=== PATIENT | female | born 2000 | race Caucasian/White ===

== ENCOUNTER 2019-01-23 16:54 | Inpatient (IN) | payer MEDICAID, SELFPAY ==
[2019-01-23] MEDS: Dinoprostone-CERVICAL 10 MG VSUPP VG (18:35)
[2019-01-23 18:37] LABS: HGB 11.6 g/dL (12.0-15.5); Mean Corp. HGB Concentration 32.2 g/dL (32.0-36.0); Mean Corpuscular Hemoglobin 27.7 pg (27.0-33.0); Mean Corpuscular Volume 85.9 fL (80-95); Mean Platelet Volume 12.7 fL (8.0-11.0); Platelet Count 153 x1000/uL (130-400); RBC 4.19 m/cumm (4.00-5.20); RBC Distribution Width 14.6 % (11.7-14.6); White Blood Cell Count 9.05 k/cumm (4.4-10.8)
[2019-01-23] MEDS: Zolpidem 5 MG TAB 10 MG PO (23:30)
[2019-01-24] MEDS: miSOPROStol 25 MCG TAB PO (07:30)
[2019-01-24] MEDS: Lactated Ringers 1,000 ML 125 ML IV ×3 (12:36→22:28)
[2019-01-24] MEDS: FentaNYL/ROPIvacaine 2 mcg/ml and 0.1% 200 ML CADD Cassette EP ×2 (16:54→21:30)
[2019-01-24] MEDS: Ondansetron 4 MG/2 ML VIAL (21:54)
[2019-01-25] MEDS: Ibuprofen 600 MG TAB PO ×3 (04:14→19:47)
[2019-01-25] MEDS: Acetaminophen 325 MG TAB 650 MG PO ×3 (13:48→23:58)
[2019-01-25] MEDS: Measles, Mumps, & Rubella Vaccine 0.5 ML VIAL SC (17:01)
[2019-01-26] MEDS: Ibuprofen 600 MG TAB PO ×3 (01:57→18:19)
[2019-01-26 07:14] LABS: HCT 30.6 % (36.0-46.0); HGB 9.4 g/dL (12.0-15.5); Mean Corp. HGB Concentration 30.7 g/dL (32.0-36.0); Mean Corpuscular Volume 87.9 fL (80-95); Mean Platelet Volume 12.7 fL (8.0-11.0); Platelet Count 159 x1000/uL (130-400); RBC 3.48 m/cumm (4.00-5.20); White Blood Cell Count 13.29 k/cumm (4.4-10.8)
[2019-01-26] MEDS: Acetaminophen 325 MG TAB 650 MG PO ×4 (08:44→22:16)
[2019-01-27] MEDS: Ibuprofen 600 MG TAB PO ×2 (00:16→11:10)
[2019-01-27] MEDS: Acetaminophen 325 MG TAB 650 MG PO ×2 (04:54→11:10)
== END 2019-01-27 12:46 | disposition home or self-care (01) | DRG 807 ==
PROVIDERS: Admitting Provider Family Medicine; Visit Provider Family Medicine
DX: O48.0 Post-term pregnancy (principal); Z37.0 Single live birth; Z3A.41 41 weeks gestation of pregnancy; O69.81X0 Labor and delivery complicated by cord around neck, without compression, not applicable or unspecified; O70.1 Second degree perineal laceration during delivery; O99.344 Other mental disorders complicating childbirth; F32.9 Major depressive disorder, single episode, unspecified
CPT/HCPCS: 36415; 85027; 86850; 86900; 86901; 59200; J2405; J3490

== ENCOUNTER 2019-06-01 03:54 | Outpatient (CLI) | payer MEDICAID, SELFPAY ==
[2019-06-01] MEDS: Omnipaque 350 MG/ML 100 ML BTL IJ (14:56)
[2019-06-01] MEDS: Breeza Beverage 473 ML BTL PO ×2 (14:58→14:59)
[2019-06-01] MEDS: Omnipaque 350 MG/ML 50 ML BTL IJ (14:58)
--- NOTE | 2019-06-01 15:04 | DI.CT_ITS ---
SYMPTOMS/DIAGNOSIS: UTERINE PERFORATION BY INTRAUTERINE DEVICE, 02/2019, T83.39XA ABDOMINAL AND PELVIC CT: CT examination of the abdomen and pelvis was performed with a bolus infusion of 100 cc of Omnipaque 350 and ingestion of dilute barium. Images obtained through the lung bases are unremarkable. The liver appears normal. Multiple calcified granulomas are noted in the spleen. Gallbladder and bile ducts are CT normal as is the pancreas. Adrenals and kidneys appear normal. No urinary tract calcification or obstruction. Abdominal aorta is of normal diameter and no major vascular abnormality is seen. No significant abdominal wall hernia seen, although there is a small fat-containing umbilical hernia. No abdominal or pelvic adenopathy. No free air or free intraperitoneal fluid. Normal appearance of the appendix. No evidence of bowel obstruction. Note is made of an IUD, which lies posterior to the lower uterine segment near the pelvic midline and lies anterior to the rectosigmoid junction. There is a vaginal tampon in place. Urinary bladder shows a suggestion of mild wall thickening; rule out cystitis. Ovaries appear intact by CT criteria, as does the uterus. CONCLUSION: Extrauterine IUD; this lies between the lower uterine segment and rectosigmoid junction. No associated hemorrhage, abscess or gas collection. Incidental finding of suspected bladder wall thickening; rule out cystitis.
== END 2019-06-01 04:14 ==
PROVIDERS: Visit Provider Obstetrics & Gynecology
DX: T83.39XA Other mechanical complication of intrauterine contraceptive device, initial encounter (principal); Z30.431 Encounter for routine checking of intrauterine contraceptive device
CPT/HCPCS: 74177; J3490; Q9967

== ENCOUNTER → 2022-04-08 00:51 | Outpatient (CLI) | payer MEDICAID, SELFPAY ==
--- NOTE | 2022-04-08 | DI.US_ITS ---
Exam(s) US OB 2-3 TRIMESTER EXAM: US OB 2-3 TRIMESTER CLINICAL HISTORY: SURVEY, SECOND TRIMESTER , Z34.92, . TECHNIQUE: Transabdominal obstetrical ultrasound was performed. COMPARISON: No exams were available for comparison FINDINGS: There is a single viable intrauterine gestation with cardiac activity identified-132 bpm. Amniotic fluid: There is a normal amount of amniotic fluid. Placental location: The placenta is posterior grade 0,with no evidence of placenta previa.This is fro m the tip of placenta to the internal cervical os is 7.1 cm on today's study. ANATOMY: A 3 vessel umbilical cord is seen. A four-chamber cardiac view was obtained. Right and left ventricular outflow tracts were imaged. There are no obvious abnormalities of the spinal column evident. There is no obvious abnormal ity of the anterior abdominal wall. stomach and urinary bladder are identified and there is no evidence of hydronephrosis. No abnormalities of the upper lip region are identified. No evidence of choroid plexus cysts i n the brain. Dating parameters place this at approximately 21 weeks and 3 days gestational age. BPD measures 21 weeks and 1 day HC measures 21 weeks and 4 days AC measures 21 weeks and 3 days FL measures 21 weeks and 5 Estimated weight is 435 gm-0 pounds 15 ounces Fetus is at the 30th percentile on the Hadlock scale. IMPRESSION:: Single viable intrauterine gestation which is approximately 21 weeks and 3 days gestati onal age, implying an ALONZO of August 16, 2022. There are no obvious anomalies evident on today's study. The placenta is posterior grade 0 with no evidence of placenta previa. There is a normal amount of amniotic fluid. DATA REPOSITORY:
== END ==
PROVIDERS: Visit Provider Nurse Practitioner Family
DX: Z34.92 Encounter for supervision of normal pregnancy, unspecified, second trimester (principal); Z3A.21 21 weeks gestation of pregnancy
CPT/HCPCS: 76805

== ENCOUNTER 2024-03-04 18:59 | Outpatient (CLI) | payer MEDICAID, SELFPAY ==
[2024-03-04 19:49] VITALS: BP 112/73; PULSE 86; RESP 16; TEMP 36.9
[2024-03-04 20:03] VITALS: PULSE 78; O2SAT 98
[2024-03-04 20:07] VITALS: BP 112/73; PULSE 66; RESP 16; TEMP 36.9; O2SAT 98
[2024-03-04 20:08] VITALS: PULSE 73; O2SAT 98
[2024-03-04 20:22] VITALS: BP 112/73; PULSE 73; TEMP 37
--- NOTE | 2024-03-04 20:34 | W.OBNST ---
Date of service: 03/04/24 Time of Service: 20:36 NST Evaluation Reason for NST Reasons for Nonstress Test: DECREASED MOVEMENT and OTHER, SEE COMMENT Reason for NST Other: Vag bleeding Gestational Age Gestational Age in Weeks and Days: 26 Weeks and 3Days Test and Monitor Explained Test/Monitor Explained: Test Explained and Monitor Explained Vital Signs Blood Pressure: 112/73 Pulse: 73 Temperature: 37.0 C Urine Results Urine Protein: Negative Urine Ketones: Negative Urine Glucose: Negative Urine Blood: Negative NST Information Date on Monitor: 03/04/24 Time on Monitor: 20:12 Note Ultrasound Done: N/A. NST Note Note: 23yo presented at 26.3w with report of decreased movement and vaginal bleeding. She was monitored here for 20 min with a reassuring NST with moderate variability, baseline 150, no accels, no decels. On sterile spec exam, no active bleeding, no blood in the vagina, visually closed cervix. SVE long and closed. Given normal NST and no active bleeding, will discharge home. She has follow up in clinic on Wednesday. NST Reviewed and Verified by: Frank Dorado
[2024-03-04 20:36] VITALS: BP 112/73; PULSE 73; TEMP 37
== END 2024-03-04 20:45 | disposition home or self-care (01) ==
LOC: BCD 18:59 → OBS 19:00
PROVIDERS: Visit Provider Family Medicine
DX: O36.8120 Decreased fetal movements, second trimester, not applicable or unspecified (principal); O46.92 Antepartum hemorrhage, unspecified, second trimester; Z3A.26 26 weeks gestation of pregnancy
CPT/HCPCS: 59025; 00123; G0378

== ENCOUNTER 2024-04-08 16:42 | Emergency (ER) | payer MEDICAID, SELFPAY ==
[2024-04-08 16:45] VITALS: BP 125/89; PULSE 81; RESP 16; TEMP 36.6; O2SAT 100
[2024-04-08] MEDS: Bupivacaine 0.5% Pres-Free 30 ML VIAL (18:17)
--- NOTE | 2024-04-08 20:57 | ED.GENADUL_ITS ---
Discharge Plan Disposition Patient Disposition: Home Condition: Stable Discharge Details Clinical Impression: Pain, dental, Primary Care Provider: Unknown,Unknown ED Provider: Deborah Carvajal Home Meds and New Rx's Prescriptions: Continued omeprazole 20 mg capsule,delayed release(DR/EC) PO DAILY Patient Comments: TAKE ONE CAPSULE BY MOUTH EVERY DAY 30 MINUTES BEFORE MORNING MEAL Multi 27-800 mg-mcg Tablet 1 tab PO DAILY ranitidine HCl 150 mg Tablet 150 mg PO BID Discharge Instructions Instructions: Dental Pain ED Additional Instructions: Take antibiotics as prescribed yogurt daily while on antibiotics follow-up with dentist return earlier with new or worsening complaints Discharge Data Discharge Date/Time-TO BE ENTERED AT DEPARTURE: 04/08/24 18:18 HPI General Date/Time Provider Initiated Documentation: 04/08/24 17:05 . HPI Narrative: 23-year-old female presents with right lower dental pain 31 weeks . Denies any abdominal pain or vaginal bleeding. States she was actually seen at [facility] [place] earlier today and started on amoxicillin for concern for dental abscess. Does not currently have a dentist per patient. Follows up at [facility]. managed at [facility]. Related Data Home Medications ?Medication ?Instructions ?Recorded ?Confirmed vit 122-ferrous fumarate 1 tab PO DAILY 01/23/19 04/08/24 27 mg iron-folic acid 800 mcg tablet ( Multi) ranitidine HCl 150 mg tablet 150 mg PO BID 01/23/19 04/08/24 omeprazole 20 mg capsule,delayed mg PO DAILY heartburn 04/08/24 release Allergies Allergy/AdvReac Type Severity Reaction Status Date / Time No Known Allergies Allergy Unverified 05/23/19 13:13 General Stated Complaint: DentalOral DELONTE: 4 Exam Narrative Exam Narrative: #32 is fractured without any evidence of deep space infection, soft palate soft, no induration, mild trismus, no obvious facial swelling, no drainage, oropharynx patent, uvula midline, nontender abdominal exam, gravid uterus Course Vital Signs Vital signs: Vital Signs Temperature 36.6 C 04/08/24 16:45 Pulse 81 04/08/24 16:45 Respiratory Rate 16 04/08/24 16:45 Blood Pressure 125/89 04/08/24 16:45 Pulse Oximetry 100 04/08/24 16:45 Temperature 36.6 C 04/08/24 16:45 Temperature Source Oral 04/08/24 16:45 Pulse 81 04/08/24 16:45 Respiratory Rate 16 04/08/24 16:45 Respiratory Effort Non-Labored 04/08/24 17:14 Blood Pressure 125/89 04/08/24 16:45 Blood Pressure Position Sitting 04/08/24 16:45 Pulse Oximetry 100 04/08/24 16:45 Oxygen Delivery Method Room Air 04/08/24 16:45 Oxygen Flow Rate 0 04/08/24 16:45 Pain Level 0 04/08/24 17:57 Comment last dose of APAP at 1300 FHR 133 04/08/24 16:45 Procedures Nerve Block Nerve Block 1: Local Anesthetic: Bupivicaine 0.5% Amount of anesthesia used (mL): 2 Intraoral Nerve Block: inferior alveolar Procedure Successful: Yes Patient Tolerated Procedure: well Complications: none Medical Decision Making Alert and oriented 23-year-old female exhibiting no signs of labor presenting with right lower dental pain. No evidence of significant deep space infection, taking amoxicillin and Flagyl currently. Will give dental block for discomfort, inferior alveolar. .Patient tolerated inferior alveolar nerve block without incident. Bupivacaine was used, 0.5%, 2 cc. Return precautions reviewed and patient expressed understanding heart rate 133 Quality:SDOH Health Related Social Needs: No Data to Display PFSH All Active Problems (Updated 04/08/24 @ 17:56 by ALEJANDRO Holloway) (Acute) Pain, dental (Acute) Uterine perforation by intrauterine contraceptive device (Acute) Social History Smoking/Tobacco Use Status: Never Smoking risk assessment performed?: Yes Alcohol Intake: former Substance use type: does not use Details: is not cosuming etoh at this time d/t Housing: apartment Do you feel safe at home: Yes Do you feel safe in your relationship?: Yes History History 2 Para 1 Hx # Term Pregnancies Multiple births Hx # Pregnancies Ectopic pregnancies AB induced Hx Number of Living Children AB spontaneous
== END 2024-04-08 18:18 | disposition home or self-care (01) ==
PROVIDERS: Emergency Provider Physician Assistant
DX: O99.891 Other specified diseases and conditions complicating pregnancy (principal); K08.89 Other specified disorders of teeth and supporting structures; Z3A.31 31 weeks gestation of pregnancy
CPT/HCPCS: 64400; 99283; J0665

== ENCOUNTER 2024-05-20 22:02 | Outpatient (CLI) | payer MEDICAID, SELFPAY ==
[2024-05-20 22:56] VITALS: BP 121/80; PULSE 86
[2024-05-20 23:16] VITALS: BP 128/91; PULSE 95
[2024-05-20 23:16] LABS: Abs Immature Grans 0.03 10^3/uL (0.0-0.06); Absolute Basophil Count 0.03 10^3/uL (0.0-0.2); Absolute Eosinophil Count 0.14 10^3/uL (0.0-0.7); Absolute Lymphocyte Count 1.45 10^3/uL (1.2-3.4); Absolute Monocyte Count 0.58 10^3/uL (0.1-0.8); Absolute Neutrophil Count 5.61 10^3/uL (1.2-6.7); Basophils % 0.4 %; Eosinophils % 1.8 %; HCT 32.3 % (36.0-46.0); HGB 10.2 g/dL (11.2-15.7); Immature Grans % 0.4 %; Lymphocytes % 18.5 %; MCH 27.3 pg (27.0-33.0); MCHC 31.6 % (32.0-36.0); MCV 86 fL (80-95); MPV 12.8 fL (8.0-11.0); Monocytes % 7.4 %; Neutrophils % 71.5 %; Platelet Count 172 10^3/uL (130-400); RBC 3.74 10^6/uL (3.93-5.22); RDW 12.3 % (11.7-14.6); RDW-SD 38.9 fL; WBC 7.84 10^3/uL (4.4-10.8)
[2024-05-20 23:30] VITALS: BP 124/87; PULSE 85
[2024-05-20 23:32] LABS: ALT 11 U/L (14-59); AST 15 U/L (15-37); Albumin 2.5 g/dL (3.4-5.0); Alkaline Phosphatase 113 U/L (46-116); Anion Gap 10.6 mmol/L (3-11); BUN 7 mg/dL (7-18); Bilirubin, Total 0.15 mg/dL (0.2-1.0); CO2 23.4 mmol/L (21.0-32.0); CREATININE 0.7 mg/dL (0.55-1.02); Calcium 9.2 mg/dL (8.5-10.1); Chloride 104 mmol/L (98-107); Estimated GFR 123.01 (mL/min/1.73m2); Glucose 102 mg/dL (74-106); Potassium 3.8 mmol/L (3.5-5.1); Sodium 138 mmol/L (136-145); Total Protein 6.1 g/dL (6.4-8.2)
[2024-05-20 23:45] VITALS: BP 108/74; PULSE 87
[2024-05-20 23:59] VITALS: BP 109/75; PULSE 80
== END 2024-05-21 00:10 | disposition home health service (06) ==
LOC: BCD 22:04 → OBS 22:47
PROVIDERS: Visit Provider Family Medicine
DX: O13.3 Gestational [pregnancy-induced] hypertension without significant proteinuria, third trimester (principal); Z3A.37 37 weeks gestation of pregnancy
CPT/HCPCS: 36415; 80053; 59025; 85025

== ENCOUNTER 2024-06-08 17:47 | Inpatient (IN) | payer MEDICAID, SELFPAY ==
[2024-06-08 18:00] VITALS: BP 130/74; PULSE 90
[2024-06-08 18:01] VITALS: BP 130/74; PULSE 90; RESP 16; TEMP 36.8; O2SAT 100
--- NOTE | 2024-06-08 18:09 | W.PM.OBHPL1 ---
Date of service: 06/08/24 Time of Service: 18:10 Assessment and Plan Assessment and plan (1) Post-dates : Status: Acute Assessment and plan: 24yo with Rh+ RI GBS- HIV- here for induction of labor for post dates. She does have a history of preeclampsia in previous pregnancies, however blood pressure and labs have been normal throughout this other than her home readings. She does have a history of uterine perforation from an IUD in 2019. SVE today 0/30/-3/soft/mid. Will start with misoprostil cervical ripening. Consider pitocin as next step if necessary. Monitor BP closely due to history. No proteinuria on admission, normal BP, no s/sx. She does want an epidural when appropriate. She desires a tubal ligation, should become necessary, otherwise plans on depo shot before discharge with plan for interval tubal. Qualifiers: Post-term type: 40-42 weeks gestation Qualified Code(s): O48.0 - Post-term (2) History of pre-eclampsia: Status: Acute OB-HPI Labor/Delivery History of Present Illness Reason for Visit: Induction of Labor Chief Complaint: Scheduled Induction of Labor Indication for Induction: Post Date. ALONZO Calculator Estimated Delivery Date Method Current WG Current Estimate 06/07/24 Ultrasound #1 40w 1d Other Estimates 06/06/24 LMP (Certain) 40w 2d History of Present Expected Delivery Route/Plan , would like an epidural Specific Issues/Plan Hx of preeclampsia in prior pregnancies, normal BP and labs this . Informed Consent Informed Consent: Induction of Labor and Risk,Benefits,Alternatives Discussed Review of Systems Narrative: Notes mild LE edema All systems reviewed & are unremarkable except as noted in HPI and below PFSH All Active Problems (Updated 06/08/24 @ 18:17 by Frank Dorado) History of pre-eclampsia (Acute) Post-dates (Acute) Uterine perforation by intrauterine contraceptive device (Acute) Social History Smoking/Tobacco Use Status: Never Smoking risk assessment performed?: Yes Alcohol Intake: former Substance use type: does not use Details: is not cosuming etoh at this time d/t Housing: apartment Do you feel safe at home: Yes Do you feel safe in your relationship?: Yes History History 6 Para 3 Hx # Term Pregnancies Multiple births Hx # Pregnancies Ectopic pregnancies AB induced Hx Number of Living Children AB spontaneous Meds Allergies and Home Medications Allergies Allergy/AdvReac Type Severity Reaction Status Date / Time No Known Allergies Allergy Unverified 05/23/19 13:13 Home Medications ?Medication ?Instructions ?Recorded ?Confirmed ?Type vit 122-ferrous fumarate 1 tab PO DAILY 01/23/19 04/08/24 History 27 mg iron-folic acid 800 mcg tablet ( Multi) ranitidine HCl 150 mg tablet 150 mg PO BID 01/23/19 04/08/24 History omeprazole 20 mg capsule,delayed mg PO DAILY heartburn 04/08/24 History release Exam Physical Exam Vital signs: Pulse BP 90 130/74 06/08/24 18:00 06/08/24 18:00 Vital Signs Reviewed: Yes Detailed Labor and Delivery Exam Dilation: 0 Effacement (%): 30 station: -3 Cervix position: mid Consistency: soft Art Score: Cervical Points Exam 0 1 2 3 Dilation Closed 1-2cm 3-4 cm 5-6cm Effacement 0-30% 40-50% 60-70% 80% Consistency Firm Medium Soft Station -3 -2 -1,0 +1,+2 Position Posterior Mid Anterior ART Score(Cervical Ripeness Score): 3 Amniotic Membrane Status: Intact Monitor Mode: External Contraction Frequency(min): none Fetus A Heart Rate Baseline: 140 Monitor Accelerations: 15 X 15 Monitor Decelerations: None Variability: Moderate (6-25 BPM) Presentation: Vertex Categories: Category I Assessment Note: Category 1, reactive Respiratory Exam Respiratory Exam: Normal Cardiovascular Exam Cardiovascular Exam: Normal Exam Exam: Normal Extremities Exam Extremities Exam: Abnormal (trace LE edema bilaterally) Neurological Exam Neurological Exam: Normal Psychiatric Exam Psychiatric Exam: Normal Results Results Group Beta Strep: Negative Blood Type: B+ Rubella Status: Immune Varicella Immunity: Immune Risk Assessment Risk for Shoulder Dystocia Historical/Initial OB: POSITIVE FOR: Pre- BMI>30 40 Weeks: POSTIVE FOR: Maternal Weight Gain >40lb and Post Dates Increased Risk?: Yes Date/Initial: 06/08/24 SLC Risk for Post- Hemorrhage At Risk?: No Counseled re: Active Management: Yes Risks Reviewed Risks Reviewed Upon Admission: Yes
[2024-06-08 18:14] LABS: HCT 33.4 % (36.0-46.0); HGB 10.6 g/dL (11.2-15.7); MCHC 31.7 % (32.0-36.0); MCV 85 fL (80-95); MPV 12.6 fL (8.0-11.0); Platelet Count 157 10^3/uL (130-400); RBC 3.92 10^6/uL (3.93-5.22); RDW 12.8 % (11.7-14.6); RDW-SD 39.3 fL
[2024-06-08] MEDS: miSOPROStol 25 MCG TAB PO ×2 (18:23→22:21)
[2024-06-08] MEDS: Omeprazole 20 MG CAPCR PO (19:49)
[2024-06-08] MEDS: Acetaminophen 325 MG TAB 650 MG PO (19:49)
[2024-06-08 20:23] VITALS: BP 121/81; PULSE 77
[2024-06-08] MEDS: Zolpidem 5 MG TAB 10 MG PO (21:42)
[2024-06-08 22:24] VITALS: BP 118/76; PULSE 72
[2024-06-09] VITALS (345 sets, daily range): BP systolic 97–140; BP diastolic 51–92; PULSE 0–189; RESP 16–18; TEMP 36.7–36.8; O2SAT 98–100; BMI 43.9
[2024-06-09] MEDS: miSOPROStol 25 MCG TAB PO ×2 (02:49→06:30)
[2024-06-09] MEDS: Acetaminophen 325 MG TAB 650 MG PO ×2 (08:15→18:49)
[2024-06-09] MEDS: Lactated Ringers 1,000 ML 125 ML IV (10:15)
--- NOTE | 2024-06-09 10:28 | W.PM.OBNL1 ---
Date of service: 06/09/24 Time of Service: 10:28 Informed Consent Informed Consent: Induction of Labor and Risk,Benefits,Alternatives Discussed Pelvic Exam Dilation: 0 Effacement (%): 30 station: -3 Cervix Position: anterior Consistency: soft Vaginal Exam Presentation: Vertex Contractions Monitor Mode: External Contraction Frequency(min): 14 Contraction Duration(sec): 60 Intensity: Mild Fetus A Monitor: External (US) Heart Rate Baseline: 125 Presentation: Vertex Variability: Moderate (6-25 BPM) Categories: Category I FHR Rhythm: Regular Characteristics: Normal Accelerations: 15 X 15 Decelerations: None Amniotic Membrane Status: Intact Assessment Note: Category 1, reactive Assessment and Plan Assessment and plan (1) Post-dates : Status: Acute Assessment and plan: Lorraine recieved 4 doses of miso overnight, she did have some contractions and cramping. SVE this morning FT/30/-3/soft/anterior. Minimal change but some response to meds. Cannot place a Cook Cath now, will start pitocin. She would like her epidural as soon as in active labor. Baby remains category 1. BP normal. Qualifiers: Post-term type: 40-42 weeks gestation Qualified Code(s): O48.0 - Post-term (2) History of pre-eclampsia: Status: Acute Objective Abnormal lab results 06/08/24 Range/Units 18:04 RBC 3.92 L (3.93-5.22) 10^6/uL Hgb 10.6 L (11.2-15.7) g/dL Hct 33.4 L (36.0-46.0) % MCHC 31.7 L (32.0-36.0) % MPV 12.6 H (8.0-11.0) fL Temp Pulse Resp BP Pulse Ox 36.8 C 65 16 126/74 98 06/09/24 08:15 06/09/24 10:27 06/09/24 08:15 06/09/24 08:15 06/09/24 08:15 Laboratory Results WBC Cancelled 06/09/24 09:46 RBC Cancelled 06/09/24 09:46 Hgb Cancelled 06/09/24 09:46 Hct Cancelled 06/09/24 09:46 MCV Cancelled 06/09/24 09:46 MCH Cancelled 06/09/24 09:46 MCHC Cancelled 06/09/24 09:46 RDW Cancelled 06/09/24 09:46 Plt Count Cancelled 06/09/24 09:46 MPV Cancelled 06/09/24 09:46 ABO/Rh B Positive 06/08/24 18:04 Antibody Screen NEGATIVE 06/08/24 18:04 Vital Signs Reviewed: Yes Results Hemoglobin/Hematocrit: Hgb Cancelled 06/09/24 09:46 Hct Cancelled 06/09/24 09:46 Abnormal Lab Findings: Abnormal Labs 06/08/24 18:04 RBC 3.92 L Hgb 10.6 L Hct 33.4 L MCHC 31.7 L MPV 12.6 H
[2024-06-09] MEDS: Oxytocin/Normal Saline 30 UNIT/500 ML BAG 2 UNITS IV (10:30)
--- NOTE | 2024-06-09 15:18 | W.PM.OBNL1 ---
Date of service: 06/09/24 Time of Service: 15:18 Informed Consent Informed Consent: Induction of Labor and Risk,Benefits,Alternatives Discussed Pelvic Exam Dilation: 2 Effacement (%): 40 station: -3 Cervix Position: anterior Consistency: soft Vaginal Exam Presentation: Vertex Contractions Monitor Mode: External Contraction Frequency(min): 2-3 Contraction Duration(sec): 45 Intensity: Mild Fetus A Monitor: External (US) Heart Rate Baseline: 130 Presentation: Vertex Variability: Moderate (6-25 BPM) Categories: Category I FHR Rhythm: Regular Characteristics: Normal Accelerations: 15 X 15 Decelerations: None Amniotic Membrane Status: Intact Assessment Note: Category 1, reactive Assessment and Plan Assessment and plan (1) Post-dates : Status: Acute Assessment and plan: Lorraine has been on Pitocin for 4.5 hour, titrated up to 20u. She is wayne but not feeling them. Cervix has changed to 2/40/-3. Not yet in labor but making change. Will continue with pitocin. Pursue AROM likely next. BP remains stable, no other concerns. Qualifiers: Post-term type: 40-42 weeks gestation Qualified Code(s): O48.0 - Post-term Objective Abnormal lab results 06/08/24 Range/Units 18:04 RBC 3.92 L (3.93-5.22) 10^6/uL Hgb 10.6 L (11.2-15.7) g/dL Hct 33.4 L (36.0-46.0) % MCHC 31.7 L (32.0-36.0) % MPV 12.6 H (8.0-11.0) fL Temp Pulse Resp BP Pulse Ox 36.7 C 94 H 18 131/72 98 06/09/24 10:42 06/09/24 15:16 06/09/24 10:42 06/09/24 15:04 06/09/24 10:42 Laboratory Results WBC Cancelled 06/09/24 09:46 RBC Cancelled 06/09/24 09:46 Hgb Cancelled 06/09/24 09:46 Hct Cancelled 06/09/24 09:46 MCV Cancelled 06/09/24 09:46 MCH Cancelled 06/09/24 09:46 MCHC Cancelled 06/09/24 09:46 RDW Cancelled 06/09/24 09:46 Plt Count Cancelled 06/09/24 09:46 MPV Cancelled 06/09/24 09:46 ABO/Rh B Positive 06/08/24 18:04 Antibody Screen NEGATIVE 06/08/24 18:04 Vital Signs Reviewed: Yes Subjective Interval history since last seen: Doing well. Sitting on the ball, she feels baby is moving down. Minimally feeling contractions. Results Hemoglobin/Hematocrit: Hgb Cancelled 06/09/24 09:46 Hct Cancelled 06/09/24 09:46 Abnormal Lab Findings: Abnormal Labs 06/08/24 18:04 RBC 3.92 L Hgb 10.6 L Hct 33.4 L MCHC 31.7 L MPV 12.6 H
--- NOTE | 2024-06-09 15:36 | ANES.PREOP_ITS ---
General Info Date of Service Date Performed: 06/09/24 Height: 5 ft 2 in Weight: 108.862 kg Body Mass Index (BMI): 43.9 Meds Allergies and Home Medications Allergies Allergy/AdvReac Type Severity Reaction Status Date / Time No Known Allergies Allergy Unverified 06/08/24 18:28 Home Medication ?Medication ?Instructions ?Recorded vit 122-ferrous fumarate 1 tab PO DAILY 01/23/19 27 mg iron-folic acid 800 mcg tablet ( Multi) omeprazole 20 mg capsule,delayed 20 mg PO DAILY heartburn 04/08/24 release acetaminophen 500 mg tablet 1,000 mg PO Q6H PRN 06/08/24 aspirin 81 mg chewable tablet 81 mg PO DAILY 06/08/24 Current Visit Medications: Current Medications Generic Name Dose Route Start Last Admin Trade Name Freq PRN Reason Stop Dose Admin Acetaminophen 650 mg 06/08/24 19:25 06/09/24 08:15 Acetaminophen 325 Mg Tab PO 650 mg Q8H PRN PRN Administration Ringer's Solution 1,000 mls @ 200 mls/hr 06/08/24 18:00 IV INFUSION SHANNA Ringer's Solution 1,000 mls @ 125 mls/hr 06/09/24 10:00 06/09/24 10:15 IV 125 mls/hr INFUSION [facility] Administration Oxytocin/Sodium Chloride 30 unit in 500 mls @ 2 mls/hr 06/09/24 10:00 06/09/24 10:30 Pitocin/Normal Saline IV 2 milliunits/min INFUSION SHANNA 2 mls/hr Administration Protocol 2 MILLIUNITS/MIN IV Miscellaneous Supplies 1 each 06/08/24 18:00 Iv Access IV DIRECTED [facility] IV Miscellaneous Supplies 1 each 06/09/24 10:00 Iv Access IV DIRECTED [facility] Misoprostol 25 mcg 06/08/24 18:00 06/09/24 06:30 Misoprostol 25 Mcg Tab PO 25 mcg Q4H SHANNA Administration Omeprazole 20 mg 06/08/24 20:00 06/08/24 19:49 Omeprazole 20 Mg Capcr PO 20 mg DAILY@1999 SHANNA Administration Sodium Chloride 0 ml 06/08/24 17:51 Normal Saline Flush 10 Ml Syr IVP PRN PRN Sodium Chloride 0 ml 06/08/24 20:00 06/08/24 19:16 Normal Saline Flush 10 Ml Syr IVP Not Given BID SHANNA Sodium Chloride 0 ml 06/08/24 17:51 Normal Saline 10 Ml Vial IJ DIRECTED PRN Sodium Chloride 0 ml 06/09/24 09:46 Normal Saline Flush 10 Ml Syr IVP PRN PRN Sodium Chloride 0 ml 06/09/24 20:00 Normal Saline Flush 10 Ml Syr IVP BID SHANNA Sodium Chloride 0 ml 06/09/24 09:46 Normal Saline 10 Ml Vial IJ DIRECTED PRN Terbutaline Sulfate 0.25 mg 06/08/24 17:51 Terbutaline 1 Mg/Ml Vial SC PRN PRN PFSH Active Problems Active Problems: Problem Status Onset Code History of pre-eclampsia Acute Z87.59 Post-dates Acute O48.0 Uterine perforation by intrauterine contraceptive device Acute T83.39XA Tobacco Smoking/Tobacco Use Status: Never Alcohol Alcohol Intake: former Substance Use Substance use: Never Substance use type: does not use and marijuana Details: is not cosuming etoh at this time d/t last Marijuana 4 months ago Prental History History 2 6 Para 3 Hx # Term Pregnancies Multiple births Hx # Pregnancies Ectopic pregnancies AB induced Hx Number of Living Children AB spontaneous Vital Signs and Lab Results Vital Signs Most Recent Vital Signs in EMR: Most Recent Vital Signs Temp Pulse Resp BP Pulse Ox 36.7 C 62 18 131/72 98 06/09/24 10:42 06/09/24 15:32 06/09/24 10:42 06/09/24 15:04 06/09/24 10:42 Lab Results 06/08/24 18:04 Blood Type / Crossmatch: 2 Antibody Screen NEGATIVE 06/08/24 Complete Blood Count: 2 White Blood Count 7.50 10^3/uL (4.4-10.8) 06/08/24 18:04 Red Blood Count 3.92 10^6/uL (3.93-5.22) L 06/08/24 18:04 Hemoglobin 10.6 g/dL (11.2-15.7) L 06/08/24 18:04 Hematocrit 33.4 % (36.0-46.0) L 06/08/24 18:04 Platelet Count 157 10^3/uL (130-400) 06/08/24 18:04 Complete Metabolic Panel: 2 Sodium 138 mmol/L (136-145) 05/20/24 23:12 Potassium 3.8 mmol/L (3.5-5.1) 05/20/24 23:12 Chloride 104 mmol/L (98-107) 05/20/24 23:12 Carbon Dioxide 23.4 mmol/L (21.0-32.0) 05/20/24 23:12 BUN 7 mg/dL (7-18) 05/20/24 23:12 Creatinine 0.7 mg/dL (0.55-1.02) 05/20/24 23:12 Est GFR (CKD-EPI 2020) 123.01 (mL/min/1.73m2) 05/20/24 23:12 Calcium 9.2 mg/dL (8.5-10.1) 05/20/24 23:12 Albumin 2.5 g/dL (3.4-5.0) L 05/20/24 23:12 Glucose 102 mg/dL (74-106) 05/20/24 23:12 Liver Function Panel: 2 Alanine Aminotransferase (ALT/SGPT) 11 U/L (14-59) L 05/20/24 2 3:12 Aspartate Amino Transf (AST/SGOT) 15 U/L (15-37) 05/20/24 23:12 Coagulation Panel: 2 No Data to Display Cardiac Panel: 2 No Data to Display Arterial Blood Gas: 2 No Data to Display Venous Blood Gas: 2 No Data to Display Pancreas Panel: 2 No Data to Display Thyroid Panel: 2 No Data to Display Infectious Disease: 2 No Data to Display Blood Cultures: 2 No Data to Display Toxicology Panel: 2 No Data to Display Panel: 2 No Data to Display Anesthesia Assessment and Plan Anesthesia History Personal History: No History of Anesthesia Complications Family History: No Family History of Anesthesia Complications Exercise Tolerance Exercise Tolerance: Metabolic Equivalents>4 Pertinent Negatives Pertinent Negatives: No Major Cardiovascular Symptoms or Complaints and No Major Pulmonary Symptoms or Complaints Cardiac & Pulmonary Exam Cardiac Exam: Normal S1/S2 Heart Sounds Pulmonary Exam: Clear Bilateral Breath Sounds Implantable Cardiac Device Does patient have a Pacemaker or an ICD?: No Airway Exam Known Difficult Airway: No Mallampati Class: 3 Mouth Opening: Normal (> 3cm) Thyromental Distance: Greater than 3 cm Neck Range of Motion: Full ROM Neck Circumference: Thick Teeth Condition: Normal Dentition Airway Comments: Active GERD ASA Classification ASA Score: ASA 3 Emergency Case?: No NPO Status NPO Status: NPO Clears >2 hours, Solids >8 hours Status Status: Confirmed Anesthesia Plan Resuscitation Status: Full Code Anesthesia Technique: Epidural Anesthesia Airway Planned: Natural Airway Pain Management: Epidural Monitors Used: Standard Monitors
--- NOTE | 2024-06-09 17:20 | W.PM.OBNL1 ---
Date of service: 06/09/24 Time of Service: 17:20 Informed Consent Informed Consent: Induction of Labor and Risk,Benefits,Alternatives Discussed Pelvic Exam Dilation: 3 Effacement (%): 40 station: -3 Cervix Position: anterior Consistency: soft Vaginal Exam Presentation: Vertex Contractions Monitor Mode: External Contraction Frequency(min): 2 Contraction Duration(sec): 45 Intensity: Mild Fetus A Monitor: External (US) Heart Rate Baseline: 125 Presentation: Vertex Variability: Moderate (6-25 BPM) Categories: Category I FHR Rhythm: Regular Characteristics: Normal Accelerations: 15 X 15 Decelerations: None Amniotic Membrane Status: Intact Assessment Note: Category 1, reactive Assessment and Plan Assessment and plan (1) Post-dates : Status: Acute Assessment and plan: Lorraine is progressing although slowly. Contractions are still mild despite 20u pit. I asked her to walk for a bit before we consider epidural as she is not in active labor. I attempted AROM but baby is high and anterior, so I did not complete it. BP has been normal throughout, and FHT are category 1. Qualifiers: Post-term type: 40-42 weeks gestation Qualified Code(s): O48.0 - Post-term Objective Abnormal lab results 06/08/24 Range/Units 18:04 RBC 3.92 L (3.93-5.22) 10^6/uL Hgb 10.6 L (11.2-15.7) g/dL Hct 33.4 L (36.0-46.0) % MCHC 31.7 L (32.0-36.0) % MPV 12.6 H (8.0-11.0) fL Temp Pulse Resp BP Pulse Ox 36.7 C 77 18 123/68 98 06/09/24 10:42 06/09/24 17:20 06/09/24 10:42 06/09/24 17:09 06/09/24 10:42 Laboratory Results WBC Cancelled 06/09/24 09:46 RBC Cancelled 06/09/24 09:46 Hgb Cancelled 06/09/24 09:46 Hct Cancelled 06/09/24 09:46 MCV Cancelled 06/09/24 09:46 MCH Cancelled 06/09/24 09:46 MCHC Cancelled 06/09/24 09:46 RDW Cancelled 06/09/24 09:46 Plt Count Cancelled 06/09/24 09:46 MPV Cancelled 06/09/24 09:46 ABO/Rh B Positive 06/08/24 18:04 Antibody Screen NEGATIVE 06/08/24 18:04 Subjective Interval history since last seen: Doing well. Contractions are still quite mild although she reports getting stronger in the last 20 minutes. She is nervous about pain and requesting epidural as soon as possible. Results Hemoglobin/Hematocrit: Hgb Cancelled 06/09/24 09:46 Hct Cancelled 06/09/24 09:46 Abnormal Lab Findings: Abnormal Labs 06/08/24 18:04 RBC 3.92 L Hgb 10.6 L Hct 33.4 L MCHC 31.7 L MPV 12.6 H
--- NOTE | 2024-06-09 19:25 | PGE_ITS ---
Date of service: 06/09/24 Time of Service: 19:26 Informed Consent Informed Consent: Induction of Labor and Risk,Benefits,Alternatives Discussed Pelvic Exam Dilation: 5 Effacement (%): 60 station: -3 Cervix Position: anterior Consistency: soft Vaginal Exam Presentation: Vertex Pooling: Positive Contractions Monitor Mode: External Contraction Frequency(min): rare on monitor, feeling every 3 min Contraction Duration(sec): 60 Intensity: Mild/Moderate Fetus A Monitor: External (US) Heart Rate Baseline: 125 Presentation: Vertex Variability: Moderate (6-25 BPM) Categories: Category I FHR Rhythm: Regular Characteristics: Normal Accelerations: 15 X 15 Decelerations: None Amniotic Membrane Status: Ruptured Rupture Method: Spontaneous Amniotic Fluid: Clear Date of Membrane Rupture: 06/09/24 Time of Membrane Rupture: 19:25 Assessment Note: Category 1, reactive. SROM during last cervical exam moderate amount of clear fluid. Assessment and Plan Assessment and plan (1) Post-dates : Status: Acute Assessment and plan: Lorraine is feeling contractions stronger although we are not picking them up well. 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 Her cervix is changing adequately and she SROM during my last exam with clear fluid. She is requesting epidural, and since she is progressing and now ruptured, fine to do that now. FHT category 1 and reactive. BP remains normal. Consider pitocin break since she has been on 20u since 1pm. I will also place an IUPC once epidural is in and could increase pitocin higher. Qualifiers: Post-term type: 40-42 weeks gestation Qualified Code(s): O48.0 - Post-term Objective Temp Pulse Resp BP Pulse Ox 36.8 C 92 H 18 123/68 98 06/09/24 18:49 06/09/24 19:24 06/09/24 10:42 06/09/24 17:09 06/09/24 10:42 Laboratory Results WBC Cancelled 06/09/24 09:46 RBC Cancelled 06/09/24 09:46 Hgb Cancelled 06/09/24 09:46 Hct Cancelled 06/09/24 09:46 MCV Cancelled 06/09/24 09:46 MCH Cancelled 06/09/24 09:46 MCHC Cancelled 06/09/24 09:46 RDW Cancelled 06/09/24 09:46 Plt Count Cancelled 06/09/24 09:46 MPV Cancelled 06/09/24 09:46 ABO/Rh B Positive 06/08/24 18:04 Antibody Screen NEGATIVE 06/08/24 18:04 Results Hemoglobin/Hematocrit: Hgb Cancelled 06/09/24 09:46 Hct Cancelled 06/09/24 09:46 Abnormal Lab Findings: Abnormal Labs 06/08/24 18:04 RBC 3.92 L Hgb 10.6 L Hct 33.4 L MCHC 31.7 L MPV 12.6 H
[2024-06-09] MEDS: Ondansetron O.D.T. 4 MG TABEF (19:28)
[2024-06-09] MEDS: FentaNYL/ROPIvacaine 2 mcg/ml and 0.1% 200 ML CADD Cassette EP (20:08)
[2024-06-09] MEDS: Lactated Ringers 250 ML 500 ML IV (20:15)
--- NOTE | 2024-06-09 20:24 | W.ANESNEU ---
Epidural/Spinal Catheter Date Performed: 06/09/24 Procedure Start: 19:50 Procedure Stop: 20:18 Requesting Provider: Frank Dorado Procedure Location: Obstetrics Reason Performed: Labor Epidural Standard Monitors Applied: Blood Pressure and See EMR for corresponding vital signs Patient Position: Sitting Sedation Given (Indicate Dose Given): No Sedation given Patient Mental Status: Awake Sterility: Hand Hygiene, Surgical Cap, Surgical Mask, Sterile Gloves, Sterile Drape/Sheet and Chlorhexidine Procedure Location: L3-L4 Interspace Epidural Needle: Tuohy 18 Gauge Needle Length: 4 Inch Needle Approach: Midline Epidural Procedure: Skin Prepped, Sterile Drape Placed, 1% Lidocaine to skin and subcutaneous tissue with 25G needle, Tuohy Needle placed, ALICE to Saline Used, Epidural Catheter Placed, Negative Heme, Negative CSF Flow and Tuohy Needle Removed Catheter Placed?: Catheter Placed Test Dose (Indicate Dose Given): 3ml 1.5% Lidocaine with 1:200K Epinephrine Given Loss of Resistance Depth (cm): 11 Catheter depth at skin (cm): 17 Dressing: [place] Dressing Placed, Mastisol Used and Dressing reinforced with Tape Epidural Provider Bolus (Indicate Dose Given): Total bolus dose given in 3-5 ml divided doses and Total Ropivacaine 0.1% with Fentanyl 2mcg/ml Given from pump. (ml) Dose:: 10mL Additives (Indicate Dose Given ): None Infusion Medication: Medication Infusion Began Medication Infusion: Ropivacaine 0.1% with Fentanyl 2mcg/ml Maintenance Infusion Rate (ml/hour): 10 PCEA Bolus Dose (ml): 5 Block Level: T7 Paresthesia: None Ultrasound: Not Used Number of Attempts (See previous attempts in note section): 2 Procedure Tolerated: No Complications Procedure Outcome: Successful Procedure Comment:: Attempt x2, difficult to palpate interspaces. Dr. Marie was present during epidural placement. ALICE 10-11cm? Needle was tenting in the skin and easy placement of catheter. Performed By: Jenelle Wilkins
--- NOTE | 2024-06-09 23:56 | PGE_ITS ---
Date of service: 06/09/24 Time of Service: 23:57 Informed Consent Informed Consent: Induction of Labor and Risk,Benefits,Alternatives Discussed Pelvic Exam Dilation: 7 Effacement (%): 60 station: -2 Vaginal Exam Presentation: Vertex Contractions Monitor Mode: Internal Contraction Frequency(min): 2 Contraction Duration(sec): 45 Intensity: Moderate IUPC resting tone (mmHg): 20 IUPC peak pressure (mmHg): 75 IUPC [place] units: 250 Fetus A Monitor: External (US) Heart Rate Baseline: 125 Presentation: Vertex Variability: Moderate (6-25 BPM) Categories: Category I FHR Rhythm: Regular Characteristics: Normal Accelerations: 15 X 15 Decelerations: Early Recurrence: Recurrent Amniotic Membrane Status: Ruptured Assessment Note: Category 1, reactive. With early decels Assessment and Plan Assessment and plan (1) Post-dates : Status: Acute Assessment and plan: Lorraine was feeling the urge to push but SVE 7/60/-2. IUPC placed and [place] units seem adequate. She is making progress although slowing, and baby is still high. Will likely place FSE as baby is difficult to monitor with toco now that [place] is off. Otherwise, continue present management. Qualifiers: Post-term type: 40-42 weeks gestation Qualified Code(s): O48.0 - Post-term Objective Temp Pulse Resp BP Pulse Ox 36.8 C 69 17 113/69 100 06/09/24 18:49 06/09/24 23:48 06/09/24 22:00 06/09/24 23:48 06/09/24 19:51 Laboratory Results WBC Cancelled 06/09/24 09:46 RBC Cancelled 06/09/24 09:46 Hgb Cancelled 06/09/24 09:46 Hct Cancelled 06/09/24 09:46 MCV Cancelled 06/09/24 09:46 MCH Cancelled 06/09/24 09:46 MCHC Cancelled 06/09/24 09:46 RDW Cancelled 06/09/24 09:46 Plt Count Cancelled 06/09/24 09:46 MPV Cancelled 06/09/24 09:46 ABO/Rh B Positive 06/08/24 18:04 Antibody Screen NEGATIVE 06/08/24 18:04 Vital Signs Reviewed: Yes Subjective Interval history since last seen: I was called to the bedside with report that lorraine felt the urge to push. She is feeling her contractions more with vaginal pressure. Results Hemoglobin/Hematocrit: Hgb Cancelled 06/09/24 09:46 Hct Cancelled 06/09/24 09:46 Abnormal Lab Findings: Abnormal Labs 06/08/24 18:04 RBC 3.92 L Hgb 10.6 L Hct 33.4 L MCHC 31.7 L MPV 12.6 H
[2024-06-10] VITALS (21 sets, daily range): BP systolic 104–135; BP diastolic 54–87; PULSE 62–92; RESP 17; TEMP 36.7; O2SAT 100
--- NOTE | 2024-06-10 00:28 | W.PM.OBNL1 ---
Date of service: 06/10/24 Time of Service: 00:28 Informed Consent Informed Consent: Induction of Labor and Risk,Benefits,Alternatives Discussed Assessment and Plan Assessment and plan (1) Post-dates : Status: Acute Assessment and plan: IUPC and FSE now in place. [place] units adequate. Early decels to 80 bbp with SVE 7/60/-2. She has been on 20u of pitocin for nearly 12 hours now. I would like to stop the pit and give her a break to clear receptors and restart low to titrate up again. This will allow her an baby some rest, see if she contracts on her own, and then restart shortly. Qualifiers: Post-term type: 40-42 weeks gestation Qualified Code(s): O48.0 - Post-term Objective Temp Pulse Resp BP Pulse Ox 36.8 C 76 17 122/63 100 06/09/24 18:49 06/10/24 00:17 06/09/24 22:00 06/10/24 00:17 06/09/24 19:51 Laboratory Results WBC Cancelled 06/09/24 09:46 RBC Cancelled 06/09/24 09:46 Hgb Cancelled 06/09/24 09:46 Hct Cancelled 06/09/24 09:46 MCV Cancelled 06/09/24 09:46 MCH Cancelled 06/09/24 09:46 MCHC Cancelled 06/09/24 09:46 RDW Cancelled 06/09/24 09:46 Plt Count Cancelled 06/09/24 09:46 MPV Cancelled 06/09/24 09:46 ABO/Rh B Positive 06/08/24 18:04 Antibody Screen NEGATIVE 06/08/24 18:04 Results Hemoglobin/Hematocrit: Hgb Cancelled 06/09/24 09:46 Hct Cancelled 06/09/24 09:46 Abnormal Lab Findings: Abnormal Labs 06/08/24 18:04 RBC 3.92 L Hgb 10.6 L Hct 33.4 L MCHC 31.7 L MPV 12.6 H
--- NOTE | 2024-06-10 04:34 | W.PM.OBNL1 ---
Date of service: 06/10/24 Time of Service: 04:34 Informed Consent Informed Consent: Induction of Labor and Risk,Benefits,Alternatives Discussed Pelvic Exam Dilation: 9 Effacement (%): 80 station: -1 Cervix Position: anterior Vaginal Exam Presentation: Cephalic Contractions Monitor Mode: Internal Contraction Frequency(min): 5 Contraction Duration(sec): 60 Intensity: Moderate IUPC resting tone (mmHg): 20 IUPC peak pressure (mmHg): 75 IUPC [place] units: 110 Fetus A Monitor: Internal (FSE) Heart Rate Baseline: 125 Presentation: Cephalic Variability: Moderate (6-25 BPM) Categories: Category I FHR Rhythm: Regular Characteristics: Normal Accelerations: 15 X 15 Decelerations: Early Recurrence: Recurrent Amniotic Membrane Status: Ruptured Assessment Note: Without pitocin strip was moderate variability and no decels. When pitocin was restarted, variability did decrease for a bit, and there were intermittent deep earlies and lates. She was repositioned and variability is now moderate again with small early decels intermittently. Currently category 1. Assessment and Plan Assessment and plan (1) Post-dates : Status: Acute Assessment and plan: Lorraine did well with the pitocin break. she continued to contract although mildly. FHT showed signs of distress when pitocin was restarted but recovered now, pit at 2u. Contractions have spaced considerably, however she has continued to make cervical change. Baby has moved down and she is now 9/80/-1. We will keep pit low, or turn it off if baby shows signs of distress again. Hope she continues to progress. Qualifiers: Post-term type: 40-42 weeks gestation Qualified Code(s): O48.0 - Post-term Objective Temp Pulse Resp BP Pulse Ox 36.8 C 82 17 135/83 100 06/09/24 18:49 06/10/24 02:48 06/10/24 04:00 06/10/24 02:48 06/09/24 19:51 Laboratory Results WBC Cancelled 06/09/24 09:46 RBC Cancelled 06/09/24 09:46 Hgb Cancelled 06/09/24 09:46 Hct Cancelled 06/09/24 09:46 MCV Cancelled 06/09/24 09:46 MCH Cancelled 06/09/24 09:46 MCHC Cancelled 06/09/24 09:46 RDW Cancelled 06/09/24 09:46 Plt Count Cancelled 06/09/24 09:46 MPV Cancelled 06/09/24 09:46 ABO/Rh B Positive 06/08/24 18:04 Antibody Screen NEGATIVE 06/08/24 18:04 Vital Signs Reviewed: Yes Subjective Interval history since last seen: Lorraine has been able to get some rest, contractions less painful but still present. She feels good in throne position, feelslike baby has moved down. Results Hemoglobin/Hematocrit: Hgb Cancelled 06/09/24 09:46 Hct Cancelled 06/09/24 09:46 Abnormal Lab Findings: Abnormal Labs 06/08/24 18:04 RBC 3.92 L Hgb 10.6 L Hct 33.4 L MCHC 31.7 L MPV 12.6 H
--- NOTE | 2024-06-10 07:17 | W.OBDELIVERY ---
Date of service: 06/10/24 Time of Service: 07:04 OB Labor/ Delivery Information Baby A Delivery Delivery Method: Spontaneaous Presentation: Cephalic Cephalic Position: Vertex Vertex Position: Left Occipital Anterior Breech Position: N/A Cord Description-Baby A: 3 Vessels and Nuchal Cord (wrapped around neck and under both arms. delivered through and reduced on perineum. ) Amniotic Fluid: Clear Estimated Blood Loss: 200 Delivery Outcome: Liveborn Infant Transferred: Remains with Mother Note: 24yo [id number] with Rh+ RI GBS-, history of preeclampsia but not in this . Tylynn was induced for post dates and labor progressed slowly on pitocin at 20u for 12 hours with adequate MVU. Epidural in place. FHT showed recurrent early decels with some lates in later stages of labor and pitocin was stopped and then restarted at lower dose after 3 hours. Once complete, she pushed effectively and quickly delivered a male infant in SOPHIA position with nuchal cord also wrapped under both arms. Delivered through, and reduced on perineum. Baby stunned initially but quickly recovered with gentle stimulation and placed on moms abdomen. Apgars of 9 and 9. After pulsations stopped, cord was clamped and cut by support person. Placenta delivered intact, 3 vessle, without incident. No lacerations. Minimal blood loss. Anticipate routine post care. Providers Doctor: Frank Dorado Field Map Editor: Frank Dorado Nurse: Nevin Jerez Nurse: Deb Paris Other: [facility] Labor/Delivery Information Number of Babies in Womb: 1 Steroids Given: None Reason Steroids Not Administered: N/A Group Beta Strep: Negative Antibiotics Administered: No Rubella Status: Immune Blood Type: B+ Varicella Immunity: Immune Born En Route: No Maternal Complications: Prolonged Labor(>20hrs) Shoulder Dystocia: No Stages of Labor Complete Dilatation Date: 06/10/24 Complete Dilatation Time: 06:45 ROM Baby A: 06/09/24 ROM Baby A: 19:25 ROM Total Time- Baby A: [id number] Infant Delivery Date-Baby A: 06/10/24 Infant Delivery Time-Baby A: 07:04 Labor Stage 2 Duration: 19 minutes Placenta Delivery Date-Baby A: 06/10/24 Placenta Delivery Time-Baby A: 07:12 Labor-Stage 3 Duration: 8 minutes Placenta Cultured: No Placenta Status: Delivered Baby A Infant Gender: Male Gestational Status: Term (39-41.6 wks) Gestational Age in Weeks/Days: 40 Weeks and 3 Days Score-1 Minute Interval(Baby A) Heart Rate-1 minute: 100 BPM or Greater Respiratory Effort- 1 minute: Spontaneous/Strong Cry Muscle Tone-1 minute: Active Movement Reflex Response-1 minute: Prompt Response Color-1 minute: Bluish Hands or Feet Total Score-1 minute: 9 Score-5 Minute Interval(Baby A) Heart Rate- 5 minute: 100 BPM or Greater Respiratory Effort-5 minute: Spontaneous/Strong Cry Muscle Tone-5 minute: Active Movement Reflex Response-5 minute: Prompt Response Color-5 minute: Bluish Hands or Feet Total Score- 5 minute: 9
[2024-06-10] MEDS: Hamamelis Leaf/Glycerin 100 EACH BOX PR (08:35)
[2024-06-10] MEDS: Oxytocin/Normal Saline 30 UNIT/500 ML BAG 167 UNITS IV (08:51)
[2024-06-10] MEDS: Acetaminophen 325 MG TAB 650 MG PO ×2 (15:21→19:27)
[2024-06-10] MEDS: Ibuprofen 600 MG TAB PO ×2 (15:22→21:04)
[2024-06-11] MEDS: Acetaminophen 325 MG TAB 650 MG PO ×3 (02:34→13:00)
[2024-06-11] MEDS: Ibuprofen 600 MG TAB PO ×2 (02:34→09:00)
--- NOTE | 2024-06-11 08:05 | W.ANESPOSTOP ---
Postoperative Evaluation Date, Time and Location Date Performed: 06/11/24 Time Performed: 08:05 Patient Location: Obstetrics Vital Signs Most Recent Imported Vital Signs: Most Recent Vital Signs Temp Pulse Resp BP Pulse Ox 36.7 C 67 17 129/79 100 06/10/24 19:45 06/10/24 19:45 06/10/24 19:45 06/10/24 19:45 06/10/24 19:45 Pain Score Most Recent Pain Score: Most Recent Pain Score Pain Level [Lower Abdomen] 6 06/10/24 19:45 Pain Level 6 06/10/24 21:04 Assessment Mental Status: Awake (Alert & Oriented to Patient Baseline) Airway and Respiratory Function: Patent airway with normal (patient baseline) respiratory exam Cardiovascular Function: Hemodynamically Stable Hydration Status: Adequately Hydrated Nausea & Vomiting: No Nausea or Vomiting Pain: Pain is tolerable per patient Peripheral Nerve Block: Patient did not receive a nerve block Postoperative Comments:: Patient was in the shower and discussed care with RN. Encouraged patient to reach out with any questions.
[2024-06-11] MEDS: Docusate Sodium 100 MG CAP PO (09:00)
[2024-06-11 09:01] VITALS: BP 116/65; PULSE 65; RESP 16; TEMP 36.6; O2SAT 100
--- NOTE | 2024-06-11 13:41 | W.PM.OBDISCH ---
Date of service: 06/11/24 Time of Service: 13:41 DS: Diagnosis Discharge Diagnosis (1) Post-dates : Status: Acute Asessment and Plan: 24yo [id number] sp vaginal delivery after induction for post dates. Uncomplicated labor although slightly prolonged. No lacerations. Doing well post . Passing flatus, voiding. Lochia normal. Fundus firm below umbilicus. Eating well. Nursing is going well, no pain, good latch. Will DC home, follow up in 6 weeks for post visit. Discharge Plan Disposition Patient Disposition: Home Condition: Good Discharge Details Reason For Visit: Induction of Labor Admit Date/Time: 06/08/24 17:47 Admit Provider: Frank Dorado Attending Provider: Frank Dorado Primary Care Provider: Unknown,Unknown Home Meds and New Rx's Prescriptions: No Action omeprazole 20 mg capsule,delayed release(DR/EC) 20 mg PO DAILY Patient Comments: TAKE ONE CAPSULE BY MOUTH EVERY DAY 30 MINUTES BEFORE MORNING MEAL aspirin 81 mg tablet,chewable 81 mg PO DAILY Patient Comments: CHEW AND SWALLOW TWO TABLETS BY MOUTH EVERY DAY acetaminophen 500 mg tablet 1,000 mg PO Q6H PRN Patient Comments: max 3000mg per day Multi 27-800 mg-mcg Tablet 1 tab PO DAILY Discharge Instructions Stand Alone Forms: BC Instructions, BC Post Vaginal Deliver Activity:: Activity as Tolerated Equipment/Supplies:: No Equipment Needed Diet:: As Tolerated Discharge Orders Discharge Orders: Discharge Order (Routine); Ordered 06/11/24 Ordered By: Frank Dorado OB:DS Summary Summary Vaginal Delivery Method: Spontaneaous Episiotomy Description: None Laceration Description: None Laceration Extension: N/A Contraception Discussed Contraception Discussed: Yes Contraceptive Plan: Tubal Ligation, Gender-Baby A: Male weight: 3390 g Status at Discharge Functional status at discharge: independent ambulation Overall status at discharge: patient is progressing back to baseline Mental Status: mental status grossly normal Speech and Movement: speech and movement normal Mood: congruent mood Affect: normal affect Time Spent with Patient providing and/or coordinating discharge services: Less than 30 minutes Quality:SDOH Health Related Social Needs: No Data to Display Exam Physical Exam Vital signs: Temp Pulse Resp BP Pulse Ox 36.6 C 65 16 116/65 100 06/11/24 09:01 06/11/24 09:01 06/11/24 09:01 06/11/24 09:01 06/11/24 09:01 Constitutional Constitutional: no acute distress Respiratory Exam Respiratory Exam: Normal Cardiovascular Exam Cardiovascular Exam: Normal Fundal Exam Fundus: Below Umbilicus and Firm Extremities Exam Extremity Exam: Normal and Edema (trace) Psychiatric Exam Psychiatric Exam: Normal PFSH All Active Problems (Updated 06/08/24 @ 18:17 by Frank Dorado) History of pre-eclampsia (Acute) Post-dates (Acute) Uterine perforation by intrauterine contraceptive device (Acute) Social History Smoking/Tobacco Use Status: Never Smoking risk assessment performed?: Yes Alcohol Intake: former Drug use: Never Substance use type: does not use and marijuana Details: is not cosuming etoh at this time d/t last Marijuana 4 months ago Housing: apartment Do you feel safe at home: Yes Do you feel safe in your relationship?: Yes History History 6 Para 3 Hx # Term Pregnancies Multiple births Hx # Pregnancies Ectopic pregnancies AB induced Hx Number of Living Children AB spontaneous DS: Data Vitals/I&O Vitals and I&O: Vital Signs Temperature 36.6 C 06/11/24 09:01 Temperature Source Oral 06/11/24 09:01 Pulse 65 06/11/24 09:01 Pulse Rhythm Regular 06/11/24 09:03 Respiratory Rate 16 06/11/24 09:01 Respiratory Depth Normal 06/11/24 09:03 Blood Pressure 116/65 06/11/24 09:01 Blood Pressure Mean 82 06/11/24 09:01 Pulse Oximetry 100 06/11/24 09:01 Oxygen Delivery Method Room Air 06/08/24 18:01 Oxygen Flow Rate 0 06/08/24 18:01 Pain Level 2 06/11/24 09:01 Intake & Output 06/10/24 06/11/24 06/11/24 23:59 11:59 23:59 Output Total 400 / 1700 Balance -400 / -512.950 Output: Urine 400 / 1700 Other: Urine Color Dark Riana Dark Riana
== END 2024-06-11 16:52 | disposition home or self-care (01) | DRG 807 ==
PROVIDERS: Admitting Provider Family Medicine; Visit Provider Family Medicine
DX: O48.0 Post-term pregnancy (principal); Z37.0 Single live birth; Z3A.40 40 weeks gestation of pregnancy; O69.81X0 Labor and delivery complicated by cord around neck, without compression, not applicable or unspecified; O63.0 Prolonged first stage (of labor); O12.04 Gestational edema, complicating childbirth
CPT/HCPCS: 00123; 36415; 85027; 86850; 86900; 86901; 59200; J1050; J3490